=== PATIENT | female | born 1985 | race African-American/Black ===

== ENCOUNTER 2016-11-05 19:08 | Outpatient (CLI) | payer MEDICAID ==
[2016-11-05 20:12] LABS: APPEARANCE,URINE CLEAR; BILIRUBIN,URINE NEGATIVE (NEGATIVE); GLUCOSE, URINE NEGATIVE (NEGATIVE); KETONES,URINE TRACE mg/dL (NEGATIVE); LEUKOCYTE ESTERASE,URINE NEGATIVE (NEGATIVE); NITRITE,URINE NEGATIVE (NEGATIVE); PROTEIN,URINE NEGATIVE (NEGATIVE); URINE SPECIFIC GRAVITY 1.003; UROBILINOGEN,URINE NEGATIVE mg/dL (<2.0)
[2016-11-05 20:24] LABS: URINE BARBITURATES SCREEN NEGATIVE; URINE METHADONE SCREEN NEGATIVE; URINE OPIATES LOW NEGATIVE; URINE PHENCYCLIDINE SCREEN NEGATIVE
[2016-11-05] MEDS: RINGERS SOLUTION,LACTATED 1,000 ML IV PRN ×2 (21:26→21:27)
== END 2016-11-05 21:54 | disposition home or self-care (01) ==
LOC: LC 19:08
PROVIDERS: ATTEND Obstetrics & Gynecology
DX: O47.03 False labor before 37 completed weeks of gestation, third trimester (principal); Z3A.31 31 weeks gestation of pregnancy
CPT/HCPCS: 80307; 81001

== ENCOUNTER 2017-01-04 06:45 | Inpatient (IN) | payer MEDICAID ==
[2017-01-02 11:11] LABS: APPEARANCE,URINE CLEAR; BILIRUBIN,URINE NEGATIVE (NEGATIVE); GLUCOSE, URINE NEGATIVE (NEGATIVE); KETONES,URINE NEGATIVE (NEGATIVE); LEUKOCYTE ESTERASE,URINE NEGATIVE (NEGATIVE); NITRITE,URINE NEGATIVE (NEGATIVE); PROTEIN,URINE NEGATIVE (NEGATIVE); URINE SPECIFIC GRAVITY 1.011; UROBILINOGEN,URINE NEGATIVE mg/dL (<2.0)
[2017-01-02 11:24] LABS: ABSOLUTE EOSINOPHILS # (AUTO) 0.1 10^3/uL (0.0-0.6); ABSOLUTE LYMPHOCYTES (AUTO) 1.9 10^3/uL (0.5-4.7); ABSOLUTE MONOCYTES (AUTO) 0.9 10^3/uL (0.1-1.4); ABSOLUTE NEUT (AUTO) 6.7 10^3/uL (1.7-8.2); BASOPHILS % (AUTO) 0.3 % (0-2); EOSINOPHILS % (AUTO) 1.5 % (0-6); HEMATOCRIT 37.3 % (36.0-47.0); HEMOGLOBIN 12.5 g/dL (12.0-15.5); HGB HCT DIFFERENCE 0.2; LYMPHOCYTES % (AUTO) 19.6 % (13-45); MEAN CORPUSCULAR HEMOGLOBIN 32.1 pg (27.0-33.4); MEAN CORPUSCULAR HGB CONC 33.6 g/dL (32.0-36.0); MEAN CORPUSCULAR VOLUME 96 fl (80-97); MONOCYTES % (AUTO) 9.4 % (3-13); SEGMENTED NEUTROPHILS % (AUTO) 69.2 % (42-78); WHITE BLOOD COUNT 9.6 10^3/uL (4.0-10.5)
[2017-01-02 11:40] LABS: URINE BARBITURATES SCREEN NEGATIVE; URINE METHADONE SCREEN NEGATIVE; URINE OPIATES LOW NEGATIVE; URINE PHENCYCLIDINE SCREEN NEGATIVE
--- NOTE | 2017-01-02 19:48 | EKG REPORT ---
SEVERITY:- NORMAL ECG - SINUS RHYTHM : Confirmed by: Kelechi Gonzalez MD 02-Jan-2017 19:47:29
[~2017-01-04 06:45] MED LIST: CEFAZOLIN 2 GM/D5W RTU 2 GM/50 ML RTUPB IV PRN; LACTATED RINGERS 1000 ML IV PRN; LIDOCAINE 0.5% INJ-PF (5 MG/ML) 50 ML SDV SUBCUT PRN
[2017-01-04] MEDS ORDERED: OXYTOCIN 10 UNIT/ML VIAL ONE (09:11)
[2017-01-04] MEDS ORDERED: KETOROLAC TROMETHAMINE INJ/PF 30 MG/1 ML SDV ONE (09:12)
[2017-01-04] MEDS ORDERED: FENTANYL CITRATE INJ/PF 250 MCG/5 ML AMPULE ONE (09:12)
[2017-01-04] MEDS ORDERED: EPHEDRINE SULFATE INJ 50 MG/1 ML AMPULE ONE (09:12)
[2017-01-04] MEDS ORDERED: MIDAZOLAM 2 MG/2 ML INJ ONE (09:12)
[2017-01-04] MEDS ORDERED: FENTANYL CITRATE INJ/PF 100 MCG/2 ML AMPUL ONE (09:12)
[2017-01-04] MEDS ORDERED: OXYTOCIN/NORMAL SALINE 20 UNIT/1,000 ML RTUINJ ONE (09:13)
[2017-01-04] MEDS ORDERED: ONDANSETRON HCL INJ/PF 4 MG/2 ML SDV ONE ×2 (09:13→14:08)
[2017-01-04] MEDS ORDERED: ACETAMINOPHEN 100 ML IV ONE (09:13)
[2017-01-04] MEDS ORDERED: ONDANSETRON HCL INJ/PF 4 MG/2 ML SDV IV PRN (10:07)
[2017-01-04] MEDS ORDERED: DIPHENHYDRAMINE HCL 50 MG/ML VIAL IV PRN (10:07)
[2017-01-04] MEDS ORDERED: MORPHINE SULFATE 10 MG/ML INJ IV PRN (10:07)
[2017-01-04] MEDS ORDERED: FENTANYL CITRATE INJ/PF 100 MCG/2 ML AMPUL IV PRN ×3 (10:07)
[2017-01-04] MEDS ORDERED: OXYCODONE-ACETAMINOPHEN 5-325 MG TABLET PO PRN ×3 (10:07→10:46)
[2017-01-04] MEDS ORDERED: PROMETHAZINE HCL INJ 25 MG/1 ML VIAL IV PRN ×3 (10:07→10:46)
[2017-01-04] MEDS ORDERED: MEPERIDINE HCL/PF INJ 25 MG/1 ML DISP.SYRIN IV PRN (10:07)
[2017-01-04] MEDS ORDERED: MEASLES,MUMPS&RUBELLA VACC/PF 0.5 ML VIAL SUBCUT PRN (10:46)
[2017-01-04] MEDS ORDERED: OXYTOCIN/NORMAL SALINE 20 UNIT/1,000 ML RTUINJ IV PRN (10:46)
[2017-01-04] MEDS ORDERED: DIPH/PERTUSS(ACELL)/TETANUS VAC/PF 0.5 ML SYR (>=10YO) IM PRN (10:46)
[2017-01-04] MEDS ORDERED: RINGERS SOLUTION,LACTATED 1,000 ML IV PRN (10:46)
[2017-01-04] MEDS ORDERED: ACETAMINOPHEN 100 ML IV PRN (10:46)
[2017-01-04] MEDS ORDERED: SIMETHICONE 80 MG TAB.CHEW PO PRN (10:46)
[2017-01-04] MEDS ORDERED: ACETAMINOPHEN 325 MG TABLET PO PRN (10:46)
[2017-01-04] MEDS ORDERED: HYDROMORPHONE HCL INJ/PF 2 MG/ML AMPULE IV PRN (10:46)
--- NOTE | 2017-01-04 10:57 | Operative Report ---
Operative Report DATE OF SURGERY: 01/04/17 PREOPERATIVE DIAGNOSIS: Patient desires repeat and tubal ligation POSTOPERATIVE DIAGNOSIS: Repeat to prevent risk from uterine rupture and tubal ligation OPERATION: Repeat via low transverse uterine incision and bilateral tubal ligation Via Hamer procedure SURGEON: PHYLLIS OCHOA ANESTHESIA: Spinal TISSUE REMOVED OR ALTERED: Segment of fallopian tubes bilateral COMPLICATIONS: None ESTIMATED BLOOD LOSS: 500 cc INTRAOPERATIVE FINDINGS: Normal uterus tubes and ovaries viable baby Apgars 8 9 , 8 lbs. 3 oz. PROCEDURE: Patient was taken the OR and placed in supine position after her spinal. Her abdomen was prepared and draped in sterile fashion and bladder was drained with a Rosales catheter. A low transverse incision was made and carried down to the level of the fascia which was nicked in the midline. Fascial incision was extended bilaterally using curved Alfaro scissors. The fascia was off the rectus muscles using sharp and blunt dissection. The rectus muscles were in the midline. Peritoneum was entered without incident. Peritoneal incision was extended superiorly and inferiorly taking care to not injure bladder. Bladder blade placed lower uterine segment identified and a serosal incision made occurring a bladder flap. Low transverse uterine incision was made with the C safe knife. The incision was extended with fingertips. The baby was delivered with some fundal pressure. Cord doubly clamped and cut and the infant was passed off to the check cashier in attendance. The placenta was manually extracted with trailing membranes. The uterus was externalized and wrapped in moist lap sponge. The uterine contents wiped clean. The uterine incision was closed with a running locking layer of 0 chromic using a second layer to imbricate first completing a double layer closure of the uterus. The serosa was closed with 2-0 chromic stitch. Tubal ligation was performed bilaterally in a Hamer manner doubly ligating each tube and removing them segment in between. The cut edge of each tube was cauterized. Posterior cul-de -sac was irrigated and suctioned free fluid. The uterus was replaced in the abdomen. The uterus was hemostatic back in the abdomen. The abdominal wall peritoneum was closed with a running 2-0 chromic stitch. Subfascial tissues were inspected for bleeding the fascia was then closed with a running 0 Vicryl in 2 segments. The wound was irrigated Jose's layer was closed with 2 oh plain gut stitch and skin closed with a running subcuticular 4-0 undyed Vicryl stitch. Mother may be doing well.
[2017-01-04] MEDS ORDERED: PHENYLEPHRINE HCL INJ/PF 10 MG/1 ML SDV ONE (14:08)
[2017-01-04] MEDS: IBUPROFEN 800 MG TABLET PO SCH ×2 (14:35→17:35)
[2017-01-04] MEDS: OXYCODONE-ACETAMINOPHEN 5-325 MG TABLET PO PRN ×2 (15:27→20:42)
[2017-01-04] MEDS: DOCUSATE SODIUM 100 MG CAPSULE PO SCH (17:34)
[2017-01-05] MEDS: IBUPROFEN 800 MG TABLET PO SCH ×4 (00:38→18:00)
[2017-01-05] MEDS: OXYCODONE-ACETAMINOPHEN 5-325 MG TABLET PO PRN ×4 (00:46→21:05)
[2017-01-05 07:10] LABS: HEMATOCRIT 28.2 % (36.0-47.0); MEAN CORPUSCULAR HEMOGLOBIN 32.1 pg (27.0-33.4); MEAN CORPUSCULAR HGB CONC 33.4 g/dL (32.0-36.0); MEAN CORPUSCULAR VOLUME 96 fl (80-97); RED BLOOD COUNT 2.94 10^6/uL (3.72-5.28); WHITE BLOOD COUNT 12.5 10^3/uL (4.0-10.5)
[2017-01-05 07:20] LABS: HEMOGLOBIN 9.4 g/dL (12.0-15.5)
[2017-01-05] MEDS: PRENATAL VITAMIN W-O CA NO5/FE FUMARATE/FA CAPSULE PO SCH (09:20)
[2017-01-05] MEDS: DOCUSATE SODIUM 100 MG CAPSULE PO SCH ×2 (09:20→18:01)
--- NOTE | 2017-01-05 11:47 | PDOC PROGRESS REPORT ---
Subjective-OB Subjective: Post Delivery Day: 31 year old. Denies any needs at this time Physical Exam (OB) Vital Signs: Temp Pulse Resp BP Pulse Ox 97.2 F 81 17 109/65 98 01/05/17 07:32 01/05/17 07:32 01/05/17 07:32 01/05/17 07:32 01/05/17 07:32 Intake & Output 01/04/17 01/05/17 01/06/17 06:59 06:59 06:59 Intake Total 3430 440 Output Total 2800 300 Balance 630 140 - PIH/Pre-Eclampsia DTR's: 1 + Clonus: Negative Headache: Absent Epigastric Pain: No Visual Changes: No - Dressing Removed: No Incision: Dressing Closure Type: Op Site - Lochia Lochia Amount: Small 10-25 ml Lochia Color: Rubra/Red - Abdomen Description: Soft, Round Hernia Present: No Bowel Sounds: Normoactive Flatus Presence: Present Stool: No Fundal Description: Firm, Midline Fundal Height: u/u - u/2 Objective-Diagnostic Laboratory: 01/05/17 06:52 01/05/17 06:52 WBC 12.5 H RBC 2.94 L Hgb 9.4 L D Hct 28.2 L MCV 96 MCH 32.1 MCHC 33.4 RDW 14.0 Plt Count 128 L
[2017-01-06] MEDS: IBUPROFEN 800 MG TABLET PO SCH ×3 (00:07→11:11)
[2017-01-06] MEDS: OXYCODONE-ACETAMINOPHEN 5-325 MG TABLET PO PRN (03:56)
[2017-01-06] MEDS: DOCUSATE SODIUM 100 MG CAPSULE PO SCH (09:03)
[2017-01-06] MEDS: PRENATAL VITAMIN W-O CA NO5/FE FUMARATE/FA CAPSULE PO SCH (09:03)
--- NOTE | 2017-01-06 09:16 | PDOC DISCHARGE SUMMARY ---
General - Admit/Disc Date/PCP Admission Date/Primary Care Provider: 01/04/17 06:45 PHYLLIS OCHOA MD Discharge Date: 01/06/17 - Discharge Diagnosis (1) Delivery by elective caesarean section Is this a current diagnosis for this admission?: Yes (2) Obesity complicating Is this a current diagnosis for this admission?: Yes (3) Is this a current diagnosis for this admission?: Yes (4) Undesired fertility Is this a current diagnosis for this admission?: Yes - Additional Information Resuscitation Status: Full Code Home Medications: Pnv No.95/Ferrous Fum/Folic AC [ Multivitamin Tablet] 1 each PO DAILY History of Present Illness History of Present Illness: SRIKANTH OLVERA is a 31 year old female Hospital Course Hospital Course: underwent scheduled ceserean delivery at term. good post operative course. Physical Exam - Physical Exam Vital Signs: Temp Pulse Resp BP Pulse Ox 97.5 F 75 18 115/60 99 01/06/17 07:11 01/06/17 07:11 01/06/17 07:11 01/06/17 07:11 01/06/17 07:11 Intake & Output 01/05/17 01/06/17 01/07/17 06:59 06:59 06:59 Intake Total 3430 1040 Output Total 2800 300 Balance 630 740 General appearance: PRESENT: no acute distress, cooperative GI/Abdominal exam: PRESENT: soft - incision c/d/intact with no evidence of infection/breakdown Result Laboratory Results: 01/05/17 06:52 Plan Discharge Plan: discharge home with follow up one week at [facility] for incision check. Time Spent: Less than 30 Minutes
[2017-01-06 11:53] VITALS: BP 129/84
== END 2017-01-06 13:02 | disposition home or self-care (01) | DRG 766 ==
LOC: 2S 06:45
PROVIDERS: ADMIT Obstetrics & Gynecology; ATTEND Obstetrics & Gynecology
PROC: 0UB70ZZ Excision of Bilateral Fallopian Tubes, Open Approach (ICD-10-PCS; 2017-01-04)
PROC: 4A1HXCZ Monitoring of Products of Conception, Cardiac Rate, External Approach (ICD-10-PCS; 2017-01-04)
PROC: 10D00Z1 Extraction of Products of Conception, Low, Open Approach (ICD-10-PCS; principal; 2017-01-04 09:30)
PROC: 3E0234Z Introduction of Serum, Toxoid and Vaccine into Muscle, Percutaneous Approach (ICD-10-PCS; 2017-01-06)
DX: O34.211 Maternal care for low transverse scar from previous cesarean delivery (principal); O99.334 Smoking (tobacco) complicating childbirth; F17.210 Nicotine dependence, cigarettes, uncomplicated; O99.214 Obesity complicating childbirth; E66.9 Obesity, unspecified; Z30.2 Encounter for sterilization; Z3A.40 40 weeks gestation of pregnancy; Z37.0 Single live birth; Z23 Encounter for immunization; Z68.36 Body mass index [BMI] 36.0-36.9, adult
CPT/HCPCS: 1961; 36415; 59025; 80307; 81001; 85025; 85027; 86850; 86900; 86901; 88302; 90715; 93005; 93010; 94799; J0131; J0690; J1170; J1885; J2250; J2370; J2405; J2590; J3010; J3490

== ENCOUNTER 2017-01-26 07:36 | Emergency (ER) | payer MEDICAID ==
--- NOTE | 2017-01-26 08:09 | ER Document Report ---
ED General - General Chief Complaint: Abdominal Pain Stated Complaint: ABDOMINAL PAIN Time Seen by Provider: 01/26/17 08:01 Mode of Arrival: Ambulatory Information source: Patient Notes: 31-year-old female presents with 2 separate complaints. Patient had a C- section performed 3 weeks ago is now complaining right lower quadrant abdominal pain. Patient d says it has been ongoing for 2 days. Patient also noted today she had a swelling to her left wrist is causing her some pain. She denies any fevers chills nausea vomiting or diarrhea TRAVEL OUTSIDE OF THE [place] IN LAST 30 DAYS: No - HPI Onset: Other Onset/Duration: Persistent Quality of pain: Achy Severity: Mild Pain Level: 1 Associated symptoms: None Exacerbated by: Denies Relieved by: Denies Similar symptoms previously: Yes Recently seen / treated by doctor: Yes - Related Data Allergies/Adverse Reactions: No Known Allergies Allergy (Verified 12/27/16 15:52) Past Medical History - Social History Smoking Status: Never Smoker Cigarette use (# per day): No Chew tobacco use (# tins/day): No Smoking Education Provided: No Family History: None - no PE Renal/ Medical History: Denies: Hx Peritoneal Dialysis Past Surgical History: Reports: Hx Section - Immunizations Hx Diphtheria, Pertussis, Tetanus Vaccination: Yes - unk Review of Systems - Review of Systems Notes: REVIEW OF SYSTEMS: CONSTITUTIONAL : Denies fever, chills, or sweats. Denies recent illness. EENT: Denies eye, ear, throat, or mouth pain or symptoms. Denies nasal or sinus congestion or discharge. Denies throat, tongue, or mouth swelling or difficulty swallowing. CARDIOVASCULAR: Denies chest pain. Denies palpitations or racing or irregular heart beat. Denies ankle edema. RESPIRATORY: Denies cough, cold, or chest congestion. Denies shortness of breath, difficulty breathing, or wheezing. GASTROINTESTINAL: Admits to right lower quadrant abdominal pain GENITOURINARY: Denies difficulty urinating, painful urination, burning, frequency, blood in urine, or discharge. FEMALE GENITOURINARY: Denies vaginal bleeding, heavy or abnormal periods, irregular periods. Denies vaginal discharge or odor. MUSCULOSKELETAL: Admits left wrist pain SKIN: Denies rash, lesions or sores. HEMATOLOGIC : Denies easy bruising or bleeding. LYMPHATIC: Denies swollen, enlarged glands. NEUROLOGICAL: Denies confusion or altered mental status. Denies passing out or loss of consciousness. Denies dizziness or lightheadedness. Denies headache. Denies weakness or paralysis or loss of use of either side. Denies problems with gait or speech. Denies sensory loss, numbness, or tingling. Denies seizures. PSYCHIATRIC: Denies anxiety or stress. Denies depression, suicidal ideation, or homicidal ideation. ALL OTHER SYSTEMS REVIEWED AND NEGATIVE. PHYSICAL EXAMINATION: GENERAL: Well-appearing, well-nourished and in no acute distress. HEAD: Atraumatic, normocephalic. EYES: Pupils equal round and reactive to light, extraocular movements intact, conjunctiva are normal. ENT: Nares patent, oropharynx clear without exudates. Moist mucous membranes. NECK: Normal range of motion, supple without lymphadenopathy LUNGS: Breath sounds clear to auscultation bilaterally and equal. No wheezes rales or rhonchi. HEART: Regular rate and rhythm without murmurs ABDOMEN: Soft, no rebound or guarding incisions well-appearing motion, no pitting or edema. No cyanosis. NEUROLOGICAL: Cranial nerves grossly intact. Normal speech, normal gait. Normal sensory, motor exams PSYCH: Normal mood, normal affect. SKIN: Mobile cystlike mass left wrist Dictation was performed using [employer] voice recognition software Physical Exam - Vital signs Vitals: Temp Pulse Resp BP Pulse Ox 97.7 F 73 16 138/90 H 99 01/26/17 07:44 01/26/17 07:44 01/26/17 07:44 01/26/17 07:44 01/26/17 07:44 Course - Re-evaluation Re-evalutation: 01/26/17 08:29 CT has been ordered to rule out appendicitis which would be quite unlikely 01/26/17 11:08 CT noted no acute abnormality, lab work was normal., pt is well appearing in no distress will dc home with close follow up After performing a Medical Screening Examination, I estimate there is LOW risk for ACUTE APPENDICITIS, BOWEL OBSTRUCTION, ACUTE CHOLECYSTITIS, PERFORATED DIVERTICULITIS, INCARCERATED HERNIA, PANCREATITIS, PELVIC INFLAMMATORY DISEASE, PERFORATED ULCER, ECTOPIC , or TUBO-OVARIAN ABSCESS, thus I consider the discharge disposition reasonable. Also, there is no evidence or peritonitis , sepsis, or toxicity. I have reevaluated this patient multiple times and no significant life threatening changes are noted. The patient and I have discussed the diagnosis and risks, and we agree with discharging home with close follow-up with the understanding that symptoms and presentations can change. We also discussed returning to the Emergency Department immediately if new or worsening symptoms occur. We have discussed the symptoms which are most concerning (e.g., bloody stool, fever, changing or worsening pain, vomiting) that necessitate immediate return. - Vital Signs Vital signs: Temp Pulse Resp BP Pulse Ox 97.7 F 73 16 138/90 H 99 01/26/17 07:44 01/26/17 07:44 01/26/17 07:44 01/26/17 07:44 01/26/17 07:44 - Laboratory Result Diagrams: 01/26/17 09:06 01/26/17 08:30 Laboratory results interpreted by me: 01/26/17 01/26/17 08:30 09:06 WBC 11.8 H Chloride 109 H - Diagnostic Test Radiology reviewed: Image reviewed, Reports reviewed - no acute abnormality Discharge - Discharge Clinical Impression: Ganglion cyst of volar aspect of left wrist Abdominal pain Qualifiers: Abdominal location: right lower quadrant Qualified Code(s): R10.31 - Right lower quadrant pain Condition: Stable Disposition: HOME, SELF-CARE Instructions: Abdominal Pain ([facility]), Observation for Appendicitis ([facility]) Additional Instructions: Follow up with your physician tomorrow for further care or return to the ED IMMEDIATELY if symptoms worsen or new concerns occur. If you cannot afford to follow up with your primary care physician a list of low cost clinics have been provided at the end of your discharge papers as well.
[2017-01-26 09:00] LABS: ALANINE AMINOTRANSFERASE 28 U/L (9-52); ALBUMIN 3.9 g/dL (3.5-5.0); ALKALINE PHOSPHATASE 94 U/L (38-126); ANION GAP 10 (5-19); ASPARTATE AMINO TRANSFERASE 17 U/L (14-36); BILIRUBIN,DIRECT 0.3 mg/dL (0.0-0.4); BILIRUBIN,TOTAL 0.4 mg/dL (0.2-1.3); BLOOD UREA NITROGEN 13 mg/dL (7-20); CALCIUM 9.8 mg/dL (8.4-10.2); CARBON DIOXIDE 23 mmol/L (22-30); CHLORIDE 109 mmol/L (98-107); CREATININE RESULT 0.79 mg/dL (0.52-1.25); GLUCOSE 95 mg/dL (75-110); POTASSIUM 4.5 mmol/L (3.6-5.0); SODIUM 142.1 mmol/L (137-145); TOTAL PROTEIN 7.5 g/dL (6.3-8.2)
[2017-01-26 09:25] LABS: ABSOLUTE BASOPHILS # (AUTO) 0.1 10^3/uL (0.0-0.2); ABSOLUTE EOSINOPHILS # (AUTO) 0.5 10^3/uL (0.0-0.6); ABSOLUTE LYMPHOCYTES (AUTO) 2.2 10^3/uL (0.5-4.7); ABSOLUTE MONOCYTES (AUTO) 0.9 10^3/uL (0.1-1.4); ABSOLUTE NEUT (AUTO) 8.2 10^3/uL (1.7-8.2); BASOPHILS % (AUTO) 0.8 % (0-2); EOSINOPHILS % (AUTO) 4.1 % (0-6); HEMATOCRIT 36.5 % (36.0-47.0); HEMOGLOBIN 12.5 g/dL (12.0-15.5); LYMPHOCYTES % (AUTO) 18.8 % (13-45); MEAN CORPUSCULAR HEMOGLOBIN 31.1 pg (27.0-33.4); MEAN CORPUSCULAR HGB CONC 34.4 g/dL (32.0-36.0); MONOCYTES % (AUTO) 7.2 % (3-13); RED BLOOD COUNT 4.03 10^6/uL (3.72-5.28); RED CELL DISTRIBUTION WIDTH 13.8 % (11.5-14.0); SEGMENTED NEUTROPHILS % (AUTO) 69.1 % (42-78); WHITE BLOOD COUNT 11.8 10^3/uL (4.0-10.5)
[2017-01-26 09:28] LABS: MEAN CORPUSCULAR VOLUME 90 fl (80-97)
[2017-01-26 09:39] LABS: APPEARANCE,URINE CLEAR; BILIRUBIN,URINE NEGATIVE (NEGATIVE); GLUCOSE, URINE NEGATIVE (NEGATIVE); KETONES,URINE NEGATIVE (NEGATIVE); LEUKOCYTE ESTERASE,URINE NEGATIVE (NEGATIVE); NITRITE,URINE NEGATIVE (NEGATIVE); PROTEIN,URINE NEGATIVE (NEGATIVE); UROBILINOGEN,URINE NEGATIVE mg/dL (<2.0)
--- NOTE | 2017-01-26 10:55 | RADIOLOGY REPORT (SQ) ---
EXAM DESCRIPTION: CT ABD/PELVIS WITH IV ORAL COMPLETED DATE/TIME: 01/26/2017 10:36 am REASON FOR STUDY: RLQ pain , 3 weeks post c section COMPARISON: CT angio chest 09/30/2014 TECHNIQUE: CT scan of the abdomen and pelvis performed using helical scanning technique with dynamic intravenous contrast injection. No oral contrast. Images reviewed with lung, soft tissue, and bone windows. Reconstructed coronal and sagittal MPR images reviewed. Delayed images for evaluation of the urinary system also acquired. All images stored on PACS. All CT scanners at this facility use dose modulation, iterative reconstruction, and/or weight based d osing when appropriate to reduce radiation dose to as low as reasonably achievable (ALARA). [facility]: Dose Right [facility]: CareDose [facility]: Dose Right [facility]: Teradose 4D [facility]: Ideaxis CONTRAST TYPE AND DOSE: contrast/concentration: Isovue 370.00 mg/ml; Total Contrast Delivered: 80.0 ml; Total Saline Delivered: 68.0 ml RENAL FUNCTION: Creatinine 0.79 RADIATION DOSE: Up-to-date CT equipment and radiation dose reduction techniques were employed. CTDIv ol: 11.4 - 16.6 mGy. DLP: 1224 mGy-cm.. LIMITATIONS: None. FINDINGS: LOWER CHEST: No significant findings. No nodules or infiltrates. LIVER: Normal size. No masses. No dilated ducts. SPLEEN: Normal size. No focal lesions. PANCREAS: No masses. No significant calcifications. No adjacent inflammation or peripancreatic fluid collections. Pancreatic duct not dilated. GALLBLADDER: No identified stones by CT criteria. No inflammatory changes to suggest cholecystitis. ADRENAL GLANDS: No significant masses or asymmetry. RIGHT KIDNEY AND URETER: No solid masses. No significant calcifications. No hydronephrosis or hyd roureter. LEFT KIDNEY AND URETER: No solid masses. No significant calcifications. No hydronephrosis or hydr oureter. AORTA AND VESSELS: No aneurysm. No dissection. Renal arteries, SMA, celiac without stenosis. RETROPERITONEUM: No retroperitoneal adenopathy, hemorrhage or masses. BOWEL AND PERITONEAL CAVITY: No masses or inflammatory changes. No free fluid or peritoneal masses. APPENDIX: Normal, best shown on axial images 48 through 53, and sagittal images 30-36. PELVIS: No free pelvic fluid. No adenopathy. section 3 weeks ago with the uterus measuring 12.7 x 9.5 x 6.5 cm in size. There is a small section scar on sagittal image 49 along the lower uterine segment. No fluid collections adjacent to the uterus worrisome for abscess. Ovaries n ormal size. ABDOMINAL WALL: No masses. No hernias. No fluid collection. No abscess. No hematoma along the Cesa rean section incision. BONES: No significant or acute findings. OTHER: No other significant finding. IMPRESSION: NO SIGNIFICANT OR ACUTE FINDING IN THE ABDOMEN OR PELVIS ON CT SCAN WITH IV CONTRAST. TECHNICAL DOCUMENTATION: JOB ID: [id number] Quality ID # [id number]: Final reports with documentation of one or more dose reduction techniques (e.g., Au tomated exposure control, adjustment of the mA and/or kV according to patient size, use of iterative reconstruction technique) 2010 [employer]- All Rights Reserved
[2017-01-26 12:48] VITALS: BP 127/56
== END 2017-01-26 12:48 | disposition home or self-care (01) ==
LOC: ER 07:36
DX: M67.432 Ganglion, left wrist (principal); R10.31 Right lower quadrant pain
CPT/HCPCS: 36415; 74177; 80053; 81001; 85025; 99284

== ENCOUNTER → 2018-05-15 | Outpatient (CLI) | payer MEDICAID ==
--- NOTE | 2018-05-15 17:16 | RADIOLOGY REPORT (SQ) ---
EXAM DESCRIPTION: U/S THYROID/SFT TISS HD NECK COMPLETED DATE/TIME: 05/15/2018 4:59 pm REASON FOR STUDY: PAROTID SWELLING R60.9 EDEMA, UNSPECIFIED COMPARISON: None. TECHNIQUE: Dynamic and static garcia-scale images acquired of the thyroid gland. Selected additional c olor/power Doppler images recorded. All images stored to PACS. LIMITATIONS: None. FINDINGS: The right parotid gland is slightly larger than left and is slightly heterogeneous. There are some lymph nodes on the right. The largest measures 7 mm. IMPRESSION: The right parotid gland is slightly larger than left and slightly heterogeneous. Correl ate for parotitis. There are some small lymph nodes in the area. TECHNICAL DOCUMENTATION: JOB ID: [id number] [employer]- All Rights Reserved Reading location - IP/workstation name: [email or web address]
== END ==
LOC: RAD 15:50
PROVIDERS: ATTEND Family Medicine
DX: R60.9 Edema, unspecified (principal)
CPT/HCPCS: 76536

== ENCOUNTER 2018-07-05 22:07 | Emergency (ER) | payer MEDICAID ==
[2018-07-05 23:33] LABS: ABSOLUTE BASOPHILS # (AUTO) 0.1 10^3/uL (0.0-0.2); ABSOLUTE EOSINOPHILS # (AUTO) 0.5 10^3/uL (0.0-0.6); ABSOLUTE LYMPHOCYTES (AUTO) 2.5 10^3/uL (0.5-4.7); ABSOLUTE NEUT (AUTO) 7.1 10^3/uL (1.7-8.2); BASOPHILS % (AUTO) 0.5 % (0-2); EOSINOPHILS % (AUTO) 4.6 % (0-6); HEMATOCRIT 34.6 % (36.0-47.0); HEMOGLOBIN 11.5 g/dL (12.0-15.5); LYMPHOCYTES % (AUTO) 22.5 % (13-45); MEAN CORPUSCULAR HEMOGLOBIN 27.3 pg (27.0-33.4); MEAN CORPUSCULAR HGB CONC 33.2 g/dL (32.0-36.0); MEAN CORPUSCULAR VOLUME 82 fl (80-97); MONOCYTES % (AUTO) 9.1 % (3-13); PLATELET COUNT 214 10^3/uL (150-450); RED BLOOD COUNT 4.21 10^6/uL (3.72-5.28); RED CELL DISTRIBUTION WIDTH 15.9 % (11.5-14.0); SEGMENTED NEUTROPHILS % (AUTO) 63.3 % (42-78); TOTAL CELLS COUNTED % (AUTO) 100 %; WHITE BLOOD COUNT 11.3 10^3/uL (4.0-10.5)
--- NOTE | 2018-07-06 00:07 | ER Document Report ---
ED General - General Chief Complaint: Numbness Stated Complaint: LEFT LEG PAIN/NUMBNESS Time Seen by Provider: 07/05/18 23:13 Primary Care Provider: JUAN GRAVES MD [Primary Care Provider] - Follow up as needed Notes: Patient is a 32-year-old female presents to the emergency department for generalized left lower leg cramping. Patient states she has had intermittent pain in her left lower extremity for the last couple of months. States last couple of days she has noticed an increase in pain which is why she presents to her primary care provider. Patient's primary care provider Dr. Juan Graves gave her an outpatient order for a d-dimer and a CBC without differential. Also discussed sending the patient to the emergency room for a Doppler of her left lower extremity to rule out a DVT. Patient states she left primary care office around 11 AM this morning but did not presents to the emergency room until after 2300 hrs. Patient is denying any shortness of breath, chest pain, lightheadedness, d izziness, injury to her left lower extremity. Past medical history: None Medications: None Allergies: None TRAVEL OUTSIDE OF THE [place] IN LAST 30 DAYS: No - Related Data Allergies/Adverse Reactions: No Known Allergies Allergy (Verified 07/05/18 22:13) Past Medical History - General Information source: Patient - Social History Smoking Status: Current Every Day Smoker Chew tobacco use (# tins/day): No Family History: None - no PE Patient has suicidal ideation: No Patient has homicidal ideation: No Renal/ Medical History: Denies: Hx Peritoneal Dialysis Past Surgical History: Reports: Hx Section - Immunizations Hx Diphtheria, Pertussis, Tetanus Vaccination: Yes - unk Review of Systems - Review of Systems Constitutional: No symptoms reported EENT: No symptoms reported Cardiovascular: No symptoms reported Respiratory: No symptoms reported Gastrointestinal: No symptoms reported Genitourinary: No symptoms reported Female Genitourinary: No symptoms reported Musculoskeletal: See HPI Skin: See HPI Hematologic/Lymphatic: See HPI Neurological/Psychological: No symptoms reported Physical Exam - Vital signs Vitals: Temp Pulse Resp BP Pulse Ox 98.8 F 86 17 149/97 H 98 07/05/18 22:27 07/05/18 22:27 07/05/18 22:27 07/05/18 22:27 07/05/18 22:27 - Notes Notes: GENERAL: Alert, interacts well. No acute distress. HEAD: Normocephalic, atraumatic. EYES: Pupils equal, round, and reactive to light. Extraocular movements intact. ENT: Oral mucosa moist, tongue midline. NECK: Full range of motion. Supple. Trachea midline. LUNGS: Clear to auscultation bilaterally, no wheezes, rales, or rhonchi. No respiratory distress. HEART: Regular rate and rhythm. No murmur ABDOMEN: Soft, non-tender. Non-distended. Bowel sounds present in all 4 quadrants. EXTREMITIES: Moves all 4 extremities spontaneously. normal radial and dorsalis pedis pulses bilaterally. No cyanosis. Patient denies pain on plantar dorsiflexion of the left lower extremity. Patient's lower extremities do not appear swollen or edematous bilaterally. No erythema or ecchymosis noted bilateral lower extremities. BACK: no cervical, thoracic, lumbar midline tenderness. No saddle anesthesia, normal distal neurovascular exam. NEUROLOGICAL: Alert and oriented x3. Normal speech. cranial nerves II through XII grossly intact PSYCH: Normal affect, normal mood. SKIN: Warm, dry, normal turgor. No rashes or lesions noted. Course - Re-evaluation Re-evalutation: 07/06/18 00:04 Patient does have order sheets with her from Dr. Juan Graves for a d-dimer and a CBC. In discussing what a d-dimer is assessing for and although we cannot do a venous Doppler of her lower extremity this time patient is very adamant that she get a d-dimer and CBC at this time. States of her primary care provider wanted it than she would like it to be performed. Discussed with her staying in the emergency department until an ultrasound can be obtained in the morning, returning in the morning for an ultrasound or getting an outpatient venous Doppler order for myself. Patient states she will return in the morning, states her primary care try to give her an outpatient order for venous Doppler and she was told her insurance would not cover it. Discussed with patient close follow-up and return to the emergency room should she develop any shortness of breath, lightheadedness, dizziness, chest pain, increased pain to her left lower extremity. Also discussed prophylactic dosing of Lovenox. Patient wishes to decline prophylactic treatment with Lovenox due to her d-dimer being normal. Discussed with her at length that this is not a 100% test and she still could have a blood clot. Patient states she still wishes to decline Lovenox at this time and will follow up in the emergency department tomorrow morning for venous Doppler ultrasound of her left lower extremity. - Vital Signs Vital signs: Temp Pulse Resp BP Pulse Ox 98.8 F 86 17 149/97 H 98 07/05/18 22:27 07/05/18 22:27 07/05/18 22:27 07/05/18 22:27 07/05/18 22:27 - Laboratory Result Diagrams: 07/05/18 23:25 Laboratory results interpreted by me: 07/05/18 23:25 WBC 11.3 H Hgb 11.5 L Hct 34.6 L RDW 15.9 H Discharge - Discharge Clinical Impression: Left leg pain Condition: Stable Disposition: HOME, SELF-CARE Instructions: Possible Evolving Leg DVT ([facility]) Additional Instructions: As we discussed you have been seen and treated in the emergency department for the pain in your left lower extremity. Also as we discussed we do not have the access to the imaging modality to take a further look at your lower extremity. You have opted to leave the emergency department and return in the morning for this testing. If at any point in time you develop shortness of breath, chest pain, increased swelling or pain to her left lower extremity or any other concerning symptoms please immediately return to the emergency room. Referrals: JUAN GRAVES MD [Primary Care Provider] - Follow up as needed
[2018-07-06 00:39] VITALS: BP 117/76
== END 2018-07-06 00:39 | disposition home or self-care (01) ==
LOC: ER 22:07
DX: M79.605 Pain in left leg (principal); R25.2 Cramp and spasm; F17.200 Nicotine dependence, unspecified, uncomplicated
CPT/HCPCS: 36415; 85025; 85379; 99284